=== PATIENT | female | born 1955 | race Caucasian/White ===

== ENCOUNTER → 2017-04-17 | Outpatient (CLI) | payer BC ==
[2017-04-17 07:51] LABS: CHOLESTEROL 240 mg/dL (0-200); HDL CHOLESTEROL 56 mg/dL (35-95); LDL/HDL RATIO 3 RATIO (0-4); TRIGLYCERIDES 134 mg/dL (10-160)
[2017-04-17 07:58] LABS: LDL CHOLESTEROL 157 mg/dL ([, -130])
== END | disposition home or self-care (01) ==
LOC: CLAB 06:20
PROVIDERS: Student in an Organized Health Care Education/Training Program
DX: E78.00 Pure hypercholesterolemia, unspecified (principal)
CPT/HCPCS: 36415; 80061